=== PATIENT | female | born 1945 | race Caucasian/White ===

== ENCOUNTER 2022-03-18 11:41 | Inpatient (IN) | payer OTHER ==
[~2022-03-18] VITALS: Ht 154.9 cm; Wt 91.2 kg
--- NOTE | 2022-03-18 11:50 | NUR ---
ER at bedside examining patient.
--- NOTE | 2022-03-18 11:55 | NUR ---
pt biba via bls with c/o mech fall s/p slipping on scale. pt presnts awake, a/o x4 and verbally responsive. no acute distress noted. breathing even and unlabored. pt reports before getting in shower she wanted to weigh herself, got on scale and scale tipped causing her to slip on floor. pt presents with immobilzer to left leg. per emt reports swelling to left thigh. pt reports a 6/10 pain. pt placed on vs montior. per emt reports pt's vss on scene. pt in gurney and in comfortable position. awaiting mse
[2022-03-18 11:59] VITALS: BP_SYST 148
[2022-03-18] MEDS ORDERED: MORPHINE 4 MG INJ. 4 MG/ML VIAL IVP ONE (12:45)
[2022-03-18 13:27] LABS: BASOPHILS % (AUTO) 0.3 % (0.0-2.0); EOSINOPHILS # (AUTO) 0.3 K/uL (0.0-0.4); EOSINOPHILS % (AUTO) 2.6 % (0.0-4.0); HEMOGLOBIN 13.1 g/dL (12.0-16.0); LYMPHOCYTES # (AUTO) 1.3 K/uL (1.0-5.5); MEAN CORPUSCULAR HEMOGLOBIN 32 pg (27-31); MEAN CORPUSCULAR HGB CONC 34 % (32-36); MEAN CORPUSCULAR VOLUME 94 fL (79.0-98.0); MONOCYTES # (AUTO) 0.9 K/uL (0.0-1.0); MONOCYTES % (AUTO) 7.1 % (1.7-9.3); NEUTROPHILS # (AUTO) 10.1 K/uL (1.8-7.7); PLATELET COUNT (AUTO) 215 K/uL (130-430); RED BLOOD CELL COUNT(AUTO) 4.16 MIL/uL (4.2-6.2); WHITE BLOOD COUNT (AUTO) 12.6 K/uL (4.8-10.8)
[2022-03-18 13:42] LABS: ANION GAP 11 (5-15); CALCIUM 8.5 mg/dL (8.4-11.0); CHLORIDE 102 mmol/L (98-107); CREATININE 0.82 mg/dL (0.55-1.30); GLUCOSE 123 mg/dL (70-99); UREA NITROGEN, BLOOD 25 mg/dL (8-21)
--- NOTE | 2022-03-18 13:42 | NUR ---
Admit bed requested Patient will be admitted to care of . Admitted to med surg unit. Diagnosis r hip femur fx Inpatient (Yes or No) y Observation (Yes or No) n Orientation concerns or request close to nursing station (Yes or No) n Covid Status neg On vent or bipap n Isolation requirements n Needs a sitter n From Home (Yes or if No enter name of facility) y Requires Dialysis (Yes or No) n Med Rec Completed (Yes of No) pending
[2022-03-18 13:46] LABS: PROTHROMBIN TIME 10.7 SECS (9.5-12.5)
[2022-03-18 13:49] LABS: ALANINE AMINOTRANSFERASE 20 U/L (12-78); ALBUMIN 3.7 g/dL (3.4-4.8); ASPARTATE AMINOTRANSFERASE 23 U/L (10-37); TOTAL BILIRUBIN 0.2 mg/dL (0.0-1.0)
[2022-03-18] MEDS ORDERED: FLUT1BLS5 INH (13:55)
[2022-03-18] MEDS ORDERED: PRAV10TA PO (13:55)
[2022-03-18] MEDS ORDERED: IBUP-1507 PO (13:55)
[2022-03-18] MEDS ORDERED: AMLO10TA88 PO (13:55)
--- NOTE | 2022-03-18 13:56 | NUR ---
Medication reconciliation completed with information provided by pt. Any prior medication reconciliation on file was reviewed and corrected.
[2022-03-18] MEDS: 0.45% NACL 1,000 ML IV SCH (14:44)
[2022-03-18 14:55] LABS: BILIRUBIN,URINE NEGATIVE (NEGATIVE); BLOOD, URINE NEGATIVE (NEGATIVE); CLARITY/URINE CLEAR (CLEAR); COLOR,URINE YELLOW (YELLOW); GLUCOSE,URINE NEGATIVE (NEGATIVE); KETONES,URINE NEGATIVE (NEGATIVE); LEUKOCYTE ESTERASE ,URINE NEGATIVE (NEGATIVE); NITRITE, URINE NEGATIVE (NEGATIVE); PROTEIN URINE NEGATIVE (NEGATIVE); UROBILINOGEN,URINE 0.2 (0.2-1.0)
--- NOTE | 2022-03-18 15:09 | NUR ---
pt resting in position of comfort in [facility]. no acute distress noted. breathing even and unlabored. safety measures in place. daughter zen and sister left at this time, stated to call for any updates at . no changes noted at this time
[2022-03-18] MEDS ORDERED: ASPIRIN 81 MG TAB.CHEW PO ONE (15:30)
--- NOTE | 2022-03-18 16:34 | NUR ---
pt is awake, a/o x4 and verbally resposive. no acute distress noted. breathing even and unlabored. safety measures in place, no changesat this time
--- NOTE | 2022-03-18 17:33 | NUR ---
pt placed on purewick / female extrernal catheter. tolerating well and no discomfort at this time
--- NOTE | 2022-03-18 18:24 | NUR ---
pt awake, a/o x4 and resting in gurney. no distress noted. breathing even and unlabored. safety measures in place, no changes at this time.
--- NOTE | 2022-03-18 18:54 | NUR ---
MEAL TRAY PROVIDED FOR PATIENT. DAUGHTER AT BEDSIDE
--- NOTE | 2022-03-18 19:17 | NUR ---
report given to Laurie NEWELL.
--- NOTE | 2022-03-18 19:30 | NUR ---
First contact with the patient. AAo x4, VSS, RR even and unlabored.
[2022-03-18] MEDS: MORPHINE 4 MG INJ. 4 MG/ML VIAL IVP PRN (19:58)
[2022-03-18 20:34] VITALS: BP_SYST 113
--- NOTE | 2022-03-18 20:35 | NUR ---
Patient will be admitted to care of Dr Roberts. Admitted to Tele unit. Will go to room 119. Belongings list completed. Complete and up to date summary report printed. SBAR report to be given at bedside with opportunity for questions.
[2022-03-18 21:00] VITALS: BP_SYST 133
--- NOTE | 2022-03-18 21:00 | NUR ---
Paged Dr. Sadie Maganafor orders, Spaulding catheter
--- NOTE | 2022-03-18 21:16 | NUR ---
Verified to the patient that she doesn't have allergy to penicillin
[2022-03-19] VITALS: BP_SYST 120
[2022-03-19] MEDS: MORPHINE 2 MG/ML INJ. SYRINGE IVP PRN ×2 (03:03→21:28)
--- NOTE | 2022-03-19 06:42 | NUR ---
RECEIVED PATIENT EARLY EVENING OF 03/18/22 FROM ER VIA GURNEY TO TELEMETRY UNIT, ROOM 119 A AT 2044, THE PATIENT IS ACCOMPANIED BY TWO DAUGHTERS. THE PATIENT IS COMFORTABLE HAVING RECEIVED IV MORPHINE JUST AFTER 200, EVALUATION OF PAIN IS REPORTED RELIEVED. NO NEW NERVE AND CIRCULATION CHANGES NOTED. THE PATIENT WAS MEDICATED LATER IN SHIFT FOR LEFT FEMUR PAIN, GOOD RESULTS, VITALS ARE STABLE. PATIENT STATES SHE IS SCHEDULED TO HAVE FEMUR SURGERY ON SUNDAY, SHE DID SPEAK WITH SURGEON. IV FLUID WITH 1/2NS AT 50/MLHR CONTINUES TO INFUSE, VITALS ARE STABLE.
[2022-03-19 08:00] VITALS: BP_SYST 137
--- NOTE | 2022-03-19 08:00 | NUR ---
Opening Notes Patient is AO x4. Nonambulatory at this time. No ss of distress noted. Breathing is even and nonlabored, on room air. Vital signs obtained, as documented. No facial grimace noted. patient is eating breakfast. IVF running, Iv patent. Bed is locked, alarm on, and at lowest position. Call light within reach.
[2022-03-19] MEDS: MORPHINE 4 MG INJ. 4 MG/ML VIAL IVP PRN ×2 (09:15→16:51)
--- NOTE | 2022-03-19 09:15 | NUR ---
Notes patient requested pain medication, stated 10/22. OSIRIS Lerner administered IVP pain medication. bed is locked, alarm on, and at lowest position. call light within reach.
--- NOTE | 2022-03-19 09:30 | NUR ---
[place] [employer] patient was informed that MD recommenced [place] traction, reason for traction was explained to patient and its benefits. Patient refused and stated "does not want it that she is fine, tomorrow she is having the surgery." MD Villaseñor indicated in notes that if patient does not tolerate traction, okay to dc.
[2022-03-19] MEDS: 0.45% NACL 1,000 ML IV SCH (11:28)
[2022-03-19 11:29] VITALS: BP_SYST 112
--- NOTE | 2022-03-19 11:42 | NUR ---
consultation called and spoke to Dr. Lilli Roth. MD is aware of consultation for cardiac clearance. MD aware that echo is being done at this time. MD state he will come and see patient in the afternoon.
[2022-03-19] MEDS ORDERED: COMMUNICATION ORDER XX SCH (12:00)
[2022-03-19] MEDS ORDERED: CARVEDILOL 3.125 MG TABLET (COREG) PO ONE (12:00)
--- NOTE | 2022-03-19 12:34 | NUR ---
Notes Patient is eating lunch and talking to family at bedside. No ss of distress. Patient denies pain. SCDs in place. Safety precautions in place and call light within reach.
--- NOTE | 2022-03-19 15:00 | NUR ---
Notes Dr. Lilli Roth saw patient at bedside and spoke to patient and family.
[2022-03-19] MEDS ORDERED: TRELEGY ELLIPTA INH ONE (15:30)
--- NOTE | 2022-03-19 16:30 | NUR ---
Notes Patient is resting, no ss of distress noted. Breathing is even and nonlabored, on room air. Patient requested pain medication. Rn Eduarda administered IVP pain med. IVF running. Iv patent. Safety precautions in place and call light within reach.
[2022-03-19 17:06] VITALS: BP_SYST 110
--- NOTE | 2022-03-19 18:59 | NUR ---
Closing Note Patient is refused tray, has food at bedside that daughter brought for her. No ss of distress noted. Breathing is even and nonlabored, on room air. Patient denies pain. No facial grimace noted. IVF running. IV patent. All needs met. Patient is stable at this time. Patient aware that she is to be NPO after midnight. Consents signed. Bed is locked, alarm on, and at lowest position. Call light within reach.
[2022-03-19 20:00] VITALS: BP_SYST 138
[2022-03-19] MEDS: CARVEDILOL 3.125 MG TABLET (COREG) PO SCH (21:29)
[2022-03-20 01:32] VITALS: BP_SYST 134
[2022-03-20 04:00] VITALS: BP_SYST 133
[2022-03-20] MEDS: MORPHINE 4 MG INJ. 4 MG/ML VIAL IVP PRN ×4 (05:22→20:44)
[2022-03-20] MEDS: 0.45% NACL 1,000 ML IV SCH (07:02)
[2022-03-20 08:00] VITALS: BP_SYST 121
--- NOTE | 2022-03-20 08:00 | NUR ---
Opening Notes Patient is Aox4. No ss of distress noted. Breathing is even and nonlabored, on room air. Patient denies pain.Patient is NPO.Iv patent. IVF running. Vital signs obtained, as documented.CHG bath was given. Patient is resting. SCDs are in place. Bed is locked, alarm on, and at lowest position.
[2022-03-20 08:14] LABS: BASOPHILS % (AUTO) 0.4 % (0.0-2.0); EOSINOPHILS # (AUTO) 0.6 K/uL (0.0-0.4); EOSINOPHILS % (AUTO) 8.1 % (0.0-4.0); HEMATOCRIT 32.1 % (36-48); HEMOGLOBIN 11.3 g/dL (12.0-16.0); LYMPHOCYTES # (AUTO) 1.4 K/uL (1.0-5.5); LYMPHOCYTES % (AUTO) 17.8 % (20.5-51.5); MEAN CORPUSCULAR HEMOGLOBIN 32 pg (27-31); MEAN CORPUSCULAR HGB CONC 35 % (32-36); MEAN CORPUSCULAR VOLUME 91 fL (79.0-98.0); MONOCYTES # (AUTO) 0.9 K/uL (0.0-1.0); MONOCYTES % (AUTO) 11.6 % (1.7-9.3); NEUTROPHILS # (AUTO) 4.9 K/uL (1.8-7.7); NEUTROPHILS % (AUTO) 62.1 % (40.0-70.0); PLATELET COUNT (AUTO) 190 K/uL (130-430); RED BLOOD CELL COUNT(AUTO) 3.52 MIL/uL (4.2-6.2); RED CELL DISTRIBUTION WIDTH 14.3 % (9.0-15.0); WHITE BLOOD COUNT (AUTO) 7.9 K/uL (4.8-10.8)
[2022-03-20 08:33] LABS: ANION GAP 8 (5-15); CALCIUM 8.3 mg/dL (8.4-11.0); CHLORIDE 104 mmol/L (98-107); CREATININE 0.72 mg/dL (0.55-1.30); GLUCOSE 123 mg/dL (70-99); UREA NITROGEN, BLOOD 13 mg/dL (8-21)
[2022-03-20] MEDS: CARVEDILOL 3.125 MG TABLET (COREG) PO SCH ×2 (08:51→20:45)
[2022-03-20] MEDS: TRELEGY ELLIPTA INH SCH (08:52)
--- NOTE | 2022-03-20 09:18 | NUR ---
Notes Patient is NPO. No ss of distress noted. Patient stable. daughter at bedside. Safety precautions in place and call light within reach.
--- NOTE | 2022-03-20 10:45 | NUR ---
MD Dr. Brandt anesthesiologist came to speak to patient at bedside. Family at bedside. Consents signed. Patient request Morphine. Dr. Brandt aware and stated"okay to give, have patient be comfortable."
[2022-03-20 10:54] VITALS: BP_SYST 143
[2022-03-20] MEDS ORDERED: TRANEXAMIC ACID 1,000 MG/10 ML VIAL ONE (11:17)
[2022-03-20] MEDS ORDERED: SUGAMMADEX SODIUM 200 MG/2 ML VIAL IV ONE (11:17)
[2022-03-20] MEDS ORDERED: NS 1000 ML IV.SOLN IV ONE (11:17)
[2022-03-20] MEDS ORDERED: DEXAMETHASONE SOD PHOSPHATE 4 MG/ML VIAL ONE (11:17)
[2022-03-20] MEDS ORDERED: DESFLURANE 15 MIN GAS INH ONE (11:17)
[2022-03-20] MEDS ORDERED: ONDANSETRON HCL 4 MG/2 ML VIAL ONE (11:17)
[2022-03-20] MEDS ORDERED: LR 1,000 ML IV.SOLN IV ONE (11:17)
[2022-03-20] MEDS ORDERED: ceFAZolin SODIUM 2 GM VIAL ONE (11:17)
[2022-03-20] MEDS ORDERED: VANCOMYCIN HCL 1000 MG/VIAL IV ONE ×2 (11:17)
[2022-03-20] MEDS ORDERED: NS IRRIG SOLN 1000 ML IR ONE (11:17)
[2022-03-20] MEDS ORDERED: ROCURONIUM BROMIDE 10 MG/ML (ZEMURON) ONE (11:17)
[2022-03-20] MEDS ORDERED: BUPIVACAINE /EPINEPHRINE/PF 0.25% 30 ML VIAL ONE (11:17)
[2022-03-20] MEDS ORDERED: PROPOFOL 200MG/ 20ML VIAL (DIPRIVAN) IV ONE (11:17)
[2022-03-20] MEDS ORDERED: KETOROLAC TROMETHAMINE 30 MG VIAL ONE (11:17)
[2022-03-20] MEDS ORDERED: LIDOCAINE 1% 10 MG/ML, 20 ML MDV ONE (11:17)
[2022-03-20] MEDS ORDERED: fentaNYL CITRATE/PF 100 MCG/2 ML AMP ONE (11:17)
[2022-03-20] MEDS ORDERED: MIDAZOLAM HCL 2 MG/2 ML VIAL (VERSED) ONE (11:17)
--- NOTE | 2022-03-20 11:28 | NUR ---
Notes Patient left unit to OR.
[2022-03-20] MEDS ORDERED: ACETAMINOPHEN I.V. 1000 MG 100 ML IV ONE (12:25)
[2022-03-20] MEDS ORDERED: LR 1,000 ML IV SCH (12:30)
[2022-03-20] MEDS ORDERED: MEPERIDINE HCL/PF 25 MG/ML DISP.SYRIN IVP PRN (12:30)
[2022-03-20] MEDS ORDERED: HYDROmorphone 1 MG/ML INJ. CARTRIDGE IVP PRN (12:30)
[2022-03-20] MEDS ORDERED: hydrALAZINE HCL 20 MG/ML VIAL IVP PRN (12:30)
[2022-03-20] MEDS ORDERED: METOCLOPRAMIDE HCL 10 MG/2 ML VIAL IVP PRN (12:30)
[2022-03-20] MEDS ORDERED: LABETALOL 100 MG/ 20ML VIAL IVP PRN (12:30)
[2022-03-20] MEDS ORDERED: HYDROmorphone 1 MG/ML INJ. CARTRIDGE ONE (14:14)
[2022-03-20] MEDS: HYDROmorphone 1 MG/ML INJ. CARTRIDGE IVP PRN ×2 (14:17→14:41)
[2022-03-20 16:00] VITALS: BP_SYST 117
--- NOTE | 2022-03-20 16:00 | NUR ---
NOTES PATIENT RETURNED TO UNIT FROM OR. NO SS OF DISTRESS NOTED. BREATHING IS EVEN AND NONLABORED,ON 2 L O2 VIA NC. PATIENT DENIES PAIN. XRAY DONE. VITAL SIGNS OBTAINED, DOCUMENTED. LEFT LOWER EXTREMITY INCISION COVERED WITH DRESSING. DRESSING IS CLEAN, DRY, AND INTACT. NO ACTIVE BLEEDING NOTED. IVF RUNNING. IV PATENT. PERIWICK IN PLACE. FAMILY AT BEDSIDE. BED IS LOCKED, ALARM ON, AND AT LOWEST POSITION. CALL LIGHT WITHIN REACH.
--- NOTE | 2022-03-20 18:20 | NUR ---
PAIN PATIENT COMPLAINING OF PAIN TO LEFT LEG. WENT TO ADMINISTER MORPHINE IV IS INFILTRATED. WASTED MORPHINE WITH SECOND INSTALLATION TECH WITNESS
--- NOTE | 2022-03-20 19:14 | NUR ---
CLOSING NOTES PATIENT IS EATING DINNER, FULL LIQUID, TOLERATING WELL. NO SS OF DISTRESS NOTED. BREATHING IS EVEN AND NONLABORED, ON 2 L O2 VIA NC. IV INFILTRATED. ATTEMPTED TO INSERT IV TWICE, UNSUCCESSFUL. NO FACIAL GRIMACE NOTED. PATIENT IS STABLE. ALL NEEDS MET. ALL SAFETY PRECAUTIONS IN PLACE. BED LOCKED, ALARM ON, AND AT LOWEST POSITION. CALL LIGHT WITHIN REACH. DAUGHTER AT BEDSIDE.
[2022-03-20 21:30] VITALS: BP_SYST 135
[2022-03-20] MEDS: ceFAZolin SODIUM 2 GM in D5W 100 ML IV SCH (22:20)
[2022-03-21] MEDS: MORPHINE 4 MG INJ. 4 MG/ML VIAL IVP PRN ×2 (02:56→09:09)
[2022-03-21 04:00] VITALS: BP_SYST 134
[2022-03-21] MEDS: ceFAZolin SODIUM 2 GM in D5W 100 ML IV SCH ×3 (06:03→21:53)
[2022-03-21 08:00] VITALS: BP_SYST 115
--- NOTE | 2022-03-21 08:00 | NUR ---
Notes Patient is Aox4.No ss of distress noted. Breathing is even and nonlabored, on room air. Denies SOB. Iv patent. Patient states has pain but manageable to this time, does not request pain meds at this time.Vital signs obtained, as documented. Patient is eating breakfast. bed is locked,alarm on, and at lowest position. Call light within reach.
[2022-03-21] MEDS: TRELEGY ELLIPTA INH SCH (08:45)
[2022-03-21] MEDS: CARVEDILOL 3.125 MG TABLET (COREG) PO SCH ×2 (08:45→21:52)
--- NOTE | 2022-03-21 09:09 | NUR ---
Notes Patient requested pain medication. RN at bedside to administer IVP Morphine.
[2022-03-21 11:12] LABS: BASOPHILS % (AUTO) 0.2 % (0.0-2.0); EOSINOPHILS % (AUTO) 0.4 % (0.0-4.0); HEMATOCRIT 28.4 % (36-48); HEMOGLOBIN 9.8 g/dL (12.0-16.0); LYMPHOCYTES # (AUTO) 1.1 K/uL (1.0-5.5); LYMPHOCYTES % (AUTO) 11.2 % (20.5-51.5); MEAN CORPUSCULAR HEMOGLOBIN 32 pg (27-31); MEAN CORPUSCULAR HGB CONC 34 % (32-36); MEAN CORPUSCULAR VOLUME 93 fL (79.0-98.0); MONOCYTES # (AUTO) 1.2 K/uL (0.0-1.0); MONOCYTES % (AUTO) 12.1 % (1.7-9.3); NEUTROPHILS # (AUTO) 7.3 K/uL (1.8-7.7); NEUTROPHILS % (AUTO) 76.1 % (40.0-70.0); PLATELET COUNT (AUTO) 192 K/uL (130-430); RED BLOOD CELL COUNT(AUTO) 3.06 MIL/uL (4.2-6.2); WHITE BLOOD COUNT (AUTO) 9.6 K/uL (4.8-10.8)
[2022-03-21 12:00] VITALS: BP_SYST 143
[2022-03-21] MEDS ORDERED: IBUPROFEN 800 MG TABLET PO PRN (12:00)
[2022-03-21] MEDS ORDERED: NALOXONE HCL 0.4 MG/ML AMP (NARCAN) IVP PRN ×2 (12:00→15:30)
[2022-03-21] MEDS ORDERED: ACETAMINOPHEN 325 MG TABLET PO PRN (12:00)
--- NOTE | 2022-03-21 12:00 | NUR ---
notes Spoke with Dr. Villaseñor. new orders received. Patient is in no distress. Breathing is even and nonlabored, on room air. Vital signs obtained. Patient denies severe pain. All safety precautions in place and call light within reach. Call light within reach.
[2022-03-21] MEDS ORDERED: ASPIRIN 81 MG TAB.CHEW PO ONE (12:45)
[2022-03-21] MEDS ORDERED: DOCUSATE SODIUM 100 MG CAPSULE PO ONE (13:00)
[2022-03-21 16:00] VITALS: BP_SYST 126
--- NOTE | 2022-03-21 16:37 | NUR ---
notes patient is resting, in bed. Patient cleaned herself up. Denies severe pain. no SOB noted. Patient is stable. Bed is locked, alarm on, and at lowest position. Call light within reach.
[2022-03-21] MEDS: HYDROcodone/ACETAMIN 5-325 MG TAB (NORCO/ VICODIN) PO PRN (17:30)
--- NOTE | 2022-03-21 18:52 | NUR ---
Closing notes Patient is resting, eating dinner. No ss of distress noted. Breathing is even and nonlabored, on room air. Denies SOB. Denies pain. Iv patent. Patient is stable. All needs met. Bed is locked, alarm on, and at lowest position. Call light within reach.
[2022-03-21 19:50] VITALS: BP_SYST 112
--- NOTE | 2022-03-21 19:50 | NUR ---
RECEIVED PT AOX4, SITTING UP IN BED, EVEN AND UNLABORED BREATHING, DENIED ANY ISSUE AT THIS TIME, LOW BED, CALL LIGHT W/N REACH, L LATERAL THIGH INCISION SITE COVERED WITH DSG, CLEAN, DRY AND INTACT. WILL CONTINUE WITH CARE PLAN
[2022-03-21] MEDS: ASPIRIN 81 MG TAB.CHEW PO SCH (21:54)
[2022-03-21] MEDS: MORPHINE 2 MG/ML INJ. SYRINGE IVP PRN (22:15)
[2022-03-22] VITALS: BP_SYST 119
[2022-03-22] MEDS: ceFAZolin SODIUM 2 GM in D5W 100 ML IV SCH ×3 (05:36→21:09)
[2022-03-22] MEDS: HYDROcodone/ACETAMIN 5-325 MG TAB (NORCO/ VICODIN) PO PRN ×2 (06:08→14:54)
--- NOTE | 2022-03-22 06:56 | NUR ---
PT AOX4, SITTING UP IN BED, EVEN AND UNLABORED BREATHING, DENIED SOB, CP, OR PAIN, LEG PAIN CONTROLLED WITH NORCO, MORTIN AND MORPHINE, WELL TOLERATED BY PT AND EFFECTIVE, LOW BED, CALL LIGHT W/N REACH, L LATERAL THIGH INCISION SITE, CLEAN, DRY AND INTACT. WILL ENDORSE TO INCOMING RN
[2022-03-22] MEDS ORDERED: OMEPRAZOLE Non-Formulary 20 MG CAPSULE.DR PO SCH (08:00)
[2022-03-22] MEDS ORDERED: HYDR-3917 PO (08:26)
[2022-03-22] MEDS: DOCUSATE SODIUM 100 MG CAPSULE PO SCH (08:48)
[2022-03-22] MEDS: CARVEDILOL 3.125 MG TABLET (COREG) PO SCH ×2 (08:48→21:08)
[2022-03-22] MEDS: ASPIRIN 81 MG TAB.CHEW PO SCH ×2 (08:48→21:07)
--- NOTE | 2022-03-22 08:48 | NUR ---
Scheduled medications given per order. Patient stable at this time with no distress noted.
[2022-03-22] MEDS: TRELEGY ELLIPTA INH SCH (08:49)
[2022-03-22 08:50] VITALS: BP_SYST 123
[2022-03-22] MEDS: PANTOPRAZOLE SODIUM 40 MG TAB PO SCH (08:51)
--- NOTE | 2022-03-22 10:30 | NUR ---
Patient stable; resting comfortably in bed with no distress noted.
[2022-03-22 11:31] VITALS: BP_SYST 121
--- NOTE | 2022-03-22 14:29 | NUR ---
Scheduled IV abx given per order. Patient stable at this time. Request medication for left leg pain. Will medicate.
--- NOTE | 2022-03-22 14:54 | NUR ---
Patient medicated for 8/10 left hip pain. Patient stable at this time.
--- NOTE | 2022-03-22 15:40 | NUR ---
Patient stable; resting comfortably in bed with no distress noted. Pain is subsiding.
--- NOTE | 2022-03-22 16:05 | NUR ---
Spoke to SHAY Franks at [facility] / . Per Tiny, inquiries were sent to 4 different SNFs. She's awaiting call back. One SNF location is in [place].
[2022-03-22 16:17] VITALS: BP_SYST 122
--- NOTE | 2022-03-22 18:45 | NUR ---
Patient resting comfortably in bed with daughter at bedside. Patient stable throughout shift.
--- NOTE | 2022-03-22 19:37 | NUR ---
RECEIVED PT IN BED, AOX4, EVEN AND UNLABORED BREATHING, DENIED SOB, CP OR PAIN AT THIS TIME, LOW BED, CALL LIGHT W/N REACH, L LATERAL THIGH INCISION SITE COVERED WITH DSG, CLEAN, DRY AND INTACT. SALINE LOCK TO LW, PATENT AND FLUSHING, WILL CONTINUE WITH CARE PLAN
[2022-03-22 20:00] VITALS: BP_SYST 131
[2022-03-22] MEDS: MORPHINE 2 MG/ML INJ. SYRINGE IVP PRN (21:10)
[2022-03-23 00:31] VITALS: BP_SYST 111
[2022-03-23] MEDS: HYDROcodone/ACETAMIN 5-325 MG TAB (NORCO/ VICODIN) PO PRN ×2 (04:19→14:56)
[2022-03-23] MEDS: ceFAZolin SODIUM 2 GM in D5W 100 ML IV SCH ×2 (05:31→14:55)
--- NOTE | 2022-03-23 06:50 | NUR ---
PT AOX4, EVEN AND UNLABORED BREATHING, DENIED SOB, CP OR PAIN AT THIS TIME, LOW BED, CALL LIGHT W/N REACH, L LATERAL THIGH INCISION SITE COVERED WITH DSG, CLEAN, DRY AND INTACT. SALINE LOCK TO LW, PATENT AND FLUSHING, ON BEDREST, VOIDING VIA PUREWICK, CLEAR AND YELLOW URINE, SAFETY PREC MAINTAINED, WILL BE ENDORSED TO INCOMING RN
[2022-03-23] MEDS: DOCUSATE SODIUM 100 MG CAPSULE PO SCH (09:12)
[2022-03-23] MEDS: PANTOPRAZOLE SODIUM 40 MG TAB PO SCH (09:12)
[2022-03-23] MEDS: ASPIRIN 81 MG TAB.CHEW PO SCH (09:12)
[2022-03-23] MEDS: CARVEDILOL 3.125 MG TABLET (COREG) PO SCH (09:13)
[2022-03-23] MEDS: TRELEGY ELLIPTA INH SCH (09:16)
[2022-03-23 12:01] VITALS: BP_SYST 110
--- NOTE | 2022-03-23 13:08 | NUR ---
PHYSICAL THERAPY CO-SIGN The Physical Therapy Progress Notes documented by Strip Mill Operator have been reviewed. Reviewed/Co-Signed by: Antonio Lujan Documentation Done by:TOM BAJWA Addendum: 03/23/22 at 1309 by Antonio Lujan PT Amended: Links added.
[2022-03-23 13:33] VITALS: BP_SYST 118
[2022-03-23 16:17] VITALS: BP_SYST 114
--- NOTE | 2022-03-23 17:33 | NUR ---
D/C Patient to SNF for rehab Patient given medication reconciliation form and D/C instructions. Exit Care provided. Patient verbalized understanding. MD discussed with patient the results and treatment provided. Ambulatory with steady gait for discharge to SNF. Patient in stable condition, ID band removed. IV catheter removed, intact and dressing applied, no active bleeding. Rx of given. Patient educated on pain management and monitor for s/s of infection . All belongings sent with patient. Report given to CC/RN at the SNF
== END 2022-03-23 17:35 | DRG 481 ==
LOC: SED 11:41 → SMU 14:00 → STU 19:55 → SMU 03-21 23:27
PROVIDERS: ADMIT Specialist; ATTEND Specialist
PROC: 0QS704Z Reposition Left Upper Femur with Internal Fixation Device, Open Approach (ICD-10-PCS; principal; 2022-03-20 11:27)
DX: M97.02XA Periprosthetic fracture around internal prosthetic left hip joint, initial encounter (principal); I43 Cardiomyopathy in diseases classified elsewhere; I10 Essential (primary) hypertension; E78.5 Hyperlipidemia, unspecified; W18.39XA Other fall on same level, initial encounter; Z20.822 Contact with and (suspected) exposure to COVID-19; Z79.1 Long term (current) use of non-steroidal anti-inflammatories (NSAID); Z79.899 Other long term (current) drug therapy; Y93.89 Activity, other specified; Y92.89 Other specified places as the place of occurrence of the external cause; Y99.8 Other external cause status
CPT/HCPCS: 36415; 71045; 73502; 73552; 73560-TC; 76001; 80048; 80053; 81003; 84484; 85025; 85610-TC; 86886; 86900; 86901; 86920; 87081; 93005; 93306; 96374; 97110-GP; 97112-GP; 97530-GP; 99285; C1713; G0378; J0131; J1100; J1170; J1885; J2001; J2270; J2405; J2704; J3010; J3370; J3465; J3490; J7030; J7060; J7120

== ENCOUNTER 2022-09-29 19:50 | Emergency (ER) | payer OTHER ==
[~2022-09-29] VITALS: Ht 152.4 cm; Wt 81.6 kg
[~2022-09-29 19:50] MED LIST: AMLO10TA88 PO; FLUT1BLS5 INH; HYDR-3917 PO; IBUP-1507 PO; PRAV10TA PO
[2022-09-29 19:56] VITALS: BP_SYST 137; PULSE 66; RESP 16; TEMP 97.9; O2SAT 96
[2022-09-29 21:59] LABS: BILIRUBIN,URINE NEGATIVE (NEGATIVE); BLOOD, URINE NEGATIVE (NEGATIVE); CLARITY/URINE HAZY (CLEAR); COLOR,URINE YELLOW (YELLOW); GLUCOSE,URINE NEGATIVE (NEGATIVE); KETONES,URINE TRACE (NEGATIVE); LEUKOCYTE ESTERASE ,URINE TRACE (NEGATIVE); NITRITE, URINE NEGATIVE (NEGATIVE); PROTEIN URINE 1+ (NEGATIVE); UROBILINOGEN,URINE 0.2 (0.2-1.0)
[2022-09-29 22:01] LABS: BACTERIA,URINE FEW /HPF (None Seen); RBC,URINE 0-3 /HPF (0-3)
[2022-09-29 22:15] VITALS: BP_SYST 137; PULSE 60; RESP 16; TEMP 97.9; O2SAT 96
== END 2022-09-29 22:15 | disposition home or self-care (01) ==
LOC: SED 19:50
DX: R55 Syncope and collapse (principal); R42 Dizziness and giddiness; I10 Essential (primary) hypertension; Z79.899 Other long term (current) drug therapy
CPT/HCPCS: 81000; 82962; 87086; 93005; 99284

== ENCOUNTER 2022-11-20 11:06 | Inpatient (IN) | payer OTHER ==
[~2022-11-20] VITALS: Ht 152.4 cm; Wt 81.6 kg
[2022-11-20 12:27] VITALS: BP_SYST 138; PULSE 88; RESP 18; TEMP 97.8; O2SAT 95
[2022-11-20] MEDS ORDERED: ONDANSETRON HCL 4 MG/2 ML VIAL IVP ONE (14:15)
[2022-11-20] MEDS ORDERED: MORPHINE 4 MG INJ. 4 MG/ML VIAL IVP ONE (14:15)
[2022-11-20 16:00] LABS: BASOPHILS % (AUTO) 0.1 % (0.0-2.0); HEMATOCRIT 38.2 % (36-48); HEMOGLOBIN 12.6 g/dL (12.0-16.0); LYMPHOCYTES % (AUTO) 12.9 % (20.5-51.5); MEAN CORPUSCULAR HEMOGLOBIN 30 pg (27-31); MEAN CORPUSCULAR HGB CONC 33 % (32-36); MEAN CORPUSCULAR VOLUME 91 fL (79.0-98.0); MONOCYTES # (AUTO) 0.4 K/uL (0.0-1.0); MONOCYTES % (AUTO) 5.2 % (1.7-9.3); NEUTROPHILS # (AUTO) 6.2 K/uL (1.8-7.7); NEUTROPHILS % (AUTO) 81.8 % (40.0-70.0); PLATELET COUNT (AUTO) 271 K/uL (130-430); RED CELL DISTRIBUTION WIDTH 14.5 % (9.0-15.0); WHITE BLOOD COUNT (AUTO) 7.6 K/uL (4.8-10.8)
[2022-11-20 16:10] LABS: ANION GAP 8 (5-15); CALCIUM 8.1 mg/dL (8.4-11.0); CARBON DIOXIDE 28 mmol/L (23-29); CHLORIDE 103 mmol/L (98-107); CREATININE 0.91 mg/dL (0.55-1.30); GLUCOSE 130 mg/dL (74-106); SODIUM SERUM 139 mmol/L (136-145); UREA NITROGEN, BLOOD 25 mg/dL (8-21)
[2022-11-20 16:17] LABS: ALANINE AMINOTRANSFERASE 26 U/L (12-78); ALBUMIN 3.6 g/dL (3.4-4.8); ASPARTATE AMINOTRANSFERASE 20 U/L (10-37); TOTAL BILIRUBIN 0.3 mg/dL (0.0-1.0); TOTAL PROTEIN, SERUM 7.5 g/dL (6.4-8.3)
[2022-11-20] MEDS ORDERED: MONT-40 PO (18:07)
[2022-11-20] MEDS ORDERED: PRED20TA PO (18:07)
[2022-11-20] MEDS ORDERED: TRELOGY (18:07)
[2022-11-20] MEDS ORDERED: PRAV10TA PO (18:07)
[2022-11-20] MEDS ORDERED: OMEP10SU2 PO (18:07)
[2022-11-20] MEDS ORDERED: CYCL10TA24 PO (18:07)
[2022-11-20] MEDS ORDERED: GABA-529 PO (18:07)
[2022-11-20] MEDS ORDERED: AMLO5TAB4 PO (18:07)
[2022-11-20 20:14] LABS: PROTHROMBIN TIME 10.1 SECS (9.5-12.5)
[2022-11-20] MEDS ORDERED: MORPHINE 4 MG INJ. 4 MG/ML VIAL IVP PRN (20:15)
[2022-11-20] MEDS ORDERED: HYDROcodone/ACETAMIN 5-325 MG TAB (NORCO/ VICODIN) PO PRN (20:15)
[2022-11-20] MEDS ORDERED: NALOXONE HCL 0.4 MG/ML AMP (NARCAN) IVP PRN ×2 (20:15)
[2022-11-20 21:00] VITALS: BP_SYST 128; PULSE 76; RESP 18; TEMP 97.6; O2SAT 93
[2022-11-20 21:34] VITALS: BP_SYST 128; PULSE 76; RESP 18; TEMP 97.6
[2022-11-20] MEDS: HYDROcodone/ACETAMIN 10-325 MG TAB PO PRN (22:25)
[2022-11-20] MEDS: D5/0.45 NS 1,000 ML IV SCH (22:26)
[2022-11-20 23:38] VITALS: O2SAT 93
[2022-11-21] VITALS (7 sets, daily range): BP systolic 100–122; PULSE 62–77; RESP 16–18; TEMP 97.1–98.4; O2SAT 91–97
[2022-11-21] MEDS: HYDROcodone/ACETAMIN 10-325 MG TAB PO PRN (03:32)
[2022-11-21] MEDS: D5/0.45 NS 1,000 ML IV SCH ×2 (06:30→11:45)
[2022-11-21 09:21] LABS: PROTHROMBIN TIME 10.7 SECS (9.5-12.5)
[2022-11-21] MEDS: HYDROcodone/ACETAMIN 5-325 MG TAB (NORCO/ VICODIN) PO PRN ×3 (11:48→21:11)
[2022-11-21] MEDS ORDERED: amLODIPine BESYLATE 5 MG TABLET PO ONE (17:30)
[2022-11-22 05:15] LABS: BILIRUBIN,URINE NEGATIVE (NEGATIVE); BLOOD, URINE NEGATIVE (NEGATIVE); CLARITY/URINE CLEAR (CLEAR); COLOR,URINE YELLOW (YELLOW); GLUCOSE,URINE NEGATIVE (NEGATIVE); KETONES,URINE NEGATIVE (NEGATIVE); NITRITE, URINE NEGATIVE (NEGATIVE); PH,URINE 7.5 (5.0-8.0); PROTEIN URINE NEGATIVE (NEGATIVE); UROBILINOGEN,URINE 0.2 (0.2-1.0)
[2022-11-22 05:32] LABS: LEUKOCYTE ESTERASE ,URINE TRACE (NEGATIVE)
[2022-11-22 05:33] LABS: BACTERIA,URINE None Seen /HPF (None Seen); RBC,URINE 0-3 /HPF (0-3)
[2022-11-22 05:34] LABS: TRIPLE PHOSPHATE CRYSTAL,UR 0-10 /HPF (None Seen)
[2022-11-22 06:17] LABS: BASOPHILS % (AUTO) 0.5 % (0.0-2.0); EOSINOPHILS # (AUTO) 0.3 K/uL (0.0-0.4); EOSINOPHILS % (AUTO) 4.9 % (0.0-4.0); HEMATOCRIT 33.3 % (36-48); HEMOGLOBIN 11.2 g/dL (12.0-16.0); LYMPHOCYTES # (AUTO) 2.3 K/uL (1.0-5.5); LYMPHOCYTES % (AUTO) 38.5 % (20.5-51.5); MEAN CORPUSCULAR HEMOGLOBIN 31 pg (27-31); MEAN CORPUSCULAR HGB CONC 34 % (32-36); MEAN CORPUSCULAR VOLUME 91 fL (79.0-98.0); MONOCYTES # (AUTO) 0.7 K/uL (0.0-1.0); MONOCYTES % (AUTO) 11.5 % (1.7-9.3); NEUTROPHILS # (AUTO) 2.7 K/uL (1.8-7.7); NEUTROPHILS % (AUTO) 44.6 % (40.0-70.0); PLATELET COUNT (AUTO) 231 K/uL (130-430); RED BLOOD CELL COUNT(AUTO) 3.66 MIL/uL (4.2-6.2); RED CELL DISTRIBUTION WIDTH 14.7 % (9.0-15.0); WHITE BLOOD COUNT (AUTO) 6.1 K/uL (4.8-10.8)
[2022-11-22 06:43] LABS: ANION GAP 10 (5-15); CALCIUM 8.3 mg/dL (8.4-11.0); CARBON DIOXIDE 24 mmol/L (23-29); CHLORIDE 106 mmol/L (98-107); CREATININE 0.78 mg/dL (0.55-1.30); GLUCOSE 101 mg/dL (74-106); POTASSIUM 4.1 mmol/L (3.5-5.1); SODIUM SERUM 140 mmol/L (136-145); UREA NITROGEN, BLOOD 24 mg/dL (8-21)
[2022-11-22] MEDS ORDERED: WATER FOR IRRIGATION,STERILE 1,000 ML IRRIG.SOLN IR ONE (07:52)
[2022-11-22] MEDS ORDERED: NS IRRIG SOLN 1000 ML IR ONE (07:52)
[2022-11-22] MEDS ORDERED: ROCURONIUM BROMIDE 10 MG/ML (ZEMURON) ONE (07:52)
[2022-11-22] MEDS ORDERED: ONDANSETRON HCL 4 MG/2 ML VIAL ONE (07:52)
[2022-11-22] MEDS ORDERED: KETOROLAC TROMETHAMINE 30 MG VIAL ONE (07:52)
[2022-11-22] MEDS ORDERED: TRANEXAMIC ACID 1,000 MG/10 ML VIAL ONE (07:52)
[2022-11-22] MEDS ORDERED: BUPIVACAINE /PF 0.25% 30 ML VIAL INJ ONE (07:52)
[2022-11-22] MEDS ORDERED: PROPOFOL 200MG/ 20ML VIAL (DIPRIVAN) IV ONE (07:52)
[2022-11-22] MEDS ORDERED: LR 1,000 ML IV.SOLN IV ONE (07:52)
[2022-11-22] MEDS ORDERED: ceFAZolin SODIUM 2 GM VIAL ONE (07:52)
[2022-11-22] MEDS ORDERED: fentaNYL CITRATE/PF 100 MCG/2 ML AMP ONE (07:52)
[2022-11-22] MEDS ORDERED: VANCOMYCIN HCL 1000 MG/VIAL IV ONE (07:52)
[2022-11-22] MEDS ORDERED: MIDAZOLAM HCL 2 MG/2 ML VIAL (VERSED) ONE (07:52)
[2022-11-22] MEDS ORDERED: DESFLURANE 15 MIN GAS INH ONE (07:52)
[2022-11-22] MEDS ORDERED: SUGAMMADEX SODIUM 200 MG/2 ML VIAL IV ONE (07:52)
[2022-11-22] MEDS ORDERED: DEXAMETHASONE SOD PHOSPHATE 4 MG/ML VIAL ONE (07:52)
[2022-11-22] MEDS ORDERED: NS IRRIG SOLN 5000 ML IR ONE (07:52)
[2022-11-22 08:00] VITALS: BP_SYST 125; PULSE 92; RESP 18; TEMP 96.9; O2SAT 96
[2022-11-22] MEDS ORDERED: ACETAMINOPHEN I.V. 1000 MG 100 ML IV ONE (08:33)
[2022-11-22] MEDS ORDERED: LABETALOL 100 MG/ 20ML VIAL IVP PRN (09:00)
[2022-11-22] MEDS ORDERED: METOCLOPRAMIDE HCL 10 MG/2 ML VIAL IVP PRN (09:00)
[2022-11-22] MEDS ORDERED: hydrALAZINE HCL 20 MG/ML VIAL IVP PRN (09:00)
[2022-11-22] MEDS ORDERED: MEPERIDINE HCL/PF 25 MG/ML DISP.SYRIN IVP PRN (09:00)
[2022-11-22] MEDS: amLODIPine BESYLATE 5 MG TABLET PO SCH (09:00)
[2022-11-22] MEDS: LR 1,000 ML IV SCH ×2 (09:00→12:30)
[2022-11-22] MEDS ORDERED: HYDROmorphone 1 MG/ML INJ. CARTRIDGE IVP PRN (09:00)
[2022-11-22] MEDS: D5/0.45 NS 1,000 ML IV SCH ×2 (09:45→21:17)
[2022-11-22] MEDS: HYDROmorphone 1 MG/ML INJ. CARTRIDGE IVP PRN ×2 (11:43→11:48)
[2022-11-22] MEDS ORDERED: HYDROmorphone 1 MG/ML INJ. CARTRIDGE ONE (11:43)
[2022-11-22 12:30] VITALS: BP_SYST 120; PULSE 88; RESP 19; TEMP 97.8; O2SAT 97; O2SAT 99
[2022-11-22] MEDS: ALBUTEROL SULFATE 0.083% 2.5 MG/3 ML VIAL.NEB INH SCH ×2 (13:00→19:00)
[2022-11-22 16:00] VITALS: BP_SYST 126; PULSE 76; RESP 19; TEMP 97.6; O2SAT 98
[2022-11-22] MEDS: HYDROcodone/ACETAMIN 10-325 MG TAB PO PRN (17:26)
[2022-11-22] MEDS ORDERED: BUDESONIDE 0.5 MG/2 ML AMPUL.NEB INH SCH (19:00)
[2022-11-22 20:00] VITALS: BP_SYST 102; PULSE 83; RESP 18; TEMP 98.8; O2SAT 94
[2022-11-22] MEDS: HYDROcodone/ACETAMIN 5-325 MG TAB (NORCO/ VICODIN) PO PRN (21:14)
[2022-11-22] MEDS: CEFAZOLIN 2 GM IVPB PREMIX 50 ML IV SCH (22:02)
[2022-11-23 00:24] VITALS: BP_SYST 113; PULSE 76; RESP 18; TEMP 97.2; O2SAT 94
[2022-11-23] MEDS: HYDROcodone/ACETAMIN 5-325 MG TAB (NORCO/ VICODIN) PO PRN (01:55)
[2022-11-23] MEDS: CEFAZOLIN 2 GM IVPB PREMIX 50 ML IV SCH ×3 (05:47→21:41)
[2022-11-23] MEDS: HYDROcodone/ACETAMIN 10-325 MG TAB PO PRN ×4 (06:44→21:41)
[2022-11-23] MEDS ORDERED: CEFA1FRO IV (09:15)
[2022-11-23] MEDS: amLODIPine BESYLATE 5 MG TABLET PO SCH (09:55)
[2022-11-23 12:00] VITALS: BP_SYST 127; PULSE 87; RESP 16; TEMP 98.4; O2SAT 97
[2022-11-23] MEDS: D5/0.45 NS 1,000 ML IV SCH (12:25)
[2022-11-23 16:00] VITALS: BP_SYST 122; PULSE 88; RESP 16; TEMP 97.9; O2SAT 98
[2022-11-23 20:20] VITALS: BP_SYST 100; PULSE 88; RESP 16; TEMP 98.2; O2SAT 94
[2022-11-23] MEDS: ZOLPIDEM TARTRATE 5 MG TABLET PO SCH (21:00)
[2022-11-24 00:01] VITALS: BP_SYST 114; PULSE 89; RESP 17; TEMP 97.6
[2022-11-24] MEDS: D5/0.45 NS 1,000 ML IV SCH (01:45)
[2022-11-24] MEDS: HYDROcodone/ACETAMIN 10-325 MG TAB PO PRN (02:01)
[2022-11-24 05:20] LABS: BASOPHILS % (AUTO) 0.2 % (0.0-2.0); EOSINOPHILS # (AUTO) 0.1 K/uL (0.0-0.4); EOSINOPHILS % (AUTO) 1.6 % (0.0-4.0); HEMATOCRIT 24.2 % (36-48); HEMOGLOBIN 8.2 g/dL (12.0-16.0); LYMPHOCYTES # (AUTO) 2.1 K/uL (1.0-5.5); LYMPHOCYTES % (AUTO) 24.5 % (20.5-51.5); MEAN CORPUSCULAR HEMOGLOBIN 31 pg (27-31); MEAN CORPUSCULAR HGB CONC 34 % (32-36); MEAN CORPUSCULAR VOLUME 91 fL (79.0-98.0); MONOCYTES # (AUTO) 0.9 K/uL (0.0-1.0); MONOCYTES % (AUTO) 11.1 % (1.7-9.3); NEUTROPHILS # (AUTO) 5.3 K/uL (1.8-7.7); NEUTROPHILS % (AUTO) 62.6 % (40.0-70.0); PLATELET COUNT (AUTO) 182 K/uL (130-430); RED BLOOD CELL COUNT(AUTO) 2.66 MIL/uL (4.2-6.2); RED CELL DISTRIBUTION WIDTH 14.3 % (9.0-15.0); WHITE BLOOD COUNT (AUTO) 8.5 K/uL (4.8-10.8)
[2022-11-24 06:12] LABS: ANION GAP 10 (5-15); CALCIUM 7.9 mg/dL (8.4-11.0); CARBON DIOXIDE 24 mmol/L (23-29); CHLORIDE 105 mmol/L (98-107); CREATININE 0.89 mg/dL (0.55-1.30); GLUCOSE 112 mg/dL (74-106); POTASSIUM 4.5 mmol/L (3.5-5.1); SODIUM SERUM 139 mmol/L (136-145); UREA NITROGEN, BLOOD 15 mg/dL (8-21)
[2022-11-24] MEDS: CEFAZOLIN 2 GM IVPB PREMIX 50 ML IV SCH ×3 (06:15→21:21)
[2022-11-24 07:00] VITALS: BP_SYST 133; PULSE 98; RESP 16; TEMP 98.1; O2SAT 96; O2SAT 97
[2022-11-24 09:00] VITALS: BP_SYST 133; PULSE 98; RESP 16; TEMP 98.1; O2SAT 97
[2022-11-24] MEDS ORDERED: DOCUSATE SODIUM 100 MG CAPSULE PO PRN (09:45)
[2022-11-24] MEDS: amLODIPine BESYLATE 5 MG TABLET PO SCH (09:58)
[2022-11-24] MEDS: HYDROcodone/ACETAMIN 5-325 MG TAB (NORCO/ VICODIN) PO PRN ×2 (09:59→19:15)
[2022-11-24 12:00] VITALS: BP_SYST 126; PULSE 94; RESP 16; TEMP 97.3; O2SAT 96
[2022-11-24 16:00] VITALS: BP_SYST 107; PULSE 87; RESP 16; TEMP 97.4; O2SAT 96
[2022-11-24 20:12] VITALS: BP_SYST 123; PULSE 90; RESP 18; TEMP 97.7; O2SAT 95
[2022-11-24] MEDS: ZOLPIDEM TARTRATE 5 MG TABLET PO SCH (21:00)
[2022-11-25 00:08] VITALS: BP_SYST 109; PULSE 81; RESP 15; TEMP 98.7; O2SAT 93
[2022-11-25] MEDS: CEFAZOLIN 2 GM IVPB PREMIX 50 ML IV SCH (05:35)
[2022-11-25] MEDS: HYDROcodone/ACETAMIN 5-325 MG TAB (NORCO/ VICODIN) PO PRN (05:42)
[2022-11-25 06:25] LABS: BASOPHILS % (AUTO) 0.4 % (0.0-2.0); EOSINOPHILS # (AUTO) 0.3 K/uL (0.0-0.4); EOSINOPHILS % (AUTO) 3.7 % (0.0-4.0); HEMATOCRIT 26.8 % (36-48); HEMOGLOBIN 8.4 g/dL (12.0-16.0); LYMPHOCYTES # (AUTO) 1.6 K/uL (1.0-5.5); LYMPHOCYTES % (AUTO) 20.6 % (20.5-51.5); MEAN CORPUSCULAR HEMOGLOBIN 30 pg (27-31); MEAN CORPUSCULAR HGB CONC 31 % (32-36); MEAN CORPUSCULAR VOLUME 95 fL (79.0-98.0); MONOCYTES # (AUTO) 0.9 K/uL (0.0-1.0); MONOCYTES % (AUTO) 12.3 % (1.7-9.3); NEUTROPHILS # (AUTO) 4.8 K/uL (1.8-7.7); PLATELET COUNT (AUTO) 162 K/uL (130-430); RED BLOOD CELL COUNT(AUTO) 2.81 MIL/uL (4.2-6.2); RED CELL DISTRIBUTION WIDTH 15.3 % (9.0-15.0); WHITE BLOOD COUNT (AUTO) 7.6 K/uL (4.8-10.8)
[2022-11-25 07:30] VITALS: BP_SYST 110; PULSE 88; RESP 18; TEMP 98.3
[2022-11-25] MEDS: amLODIPine BESYLATE 5 MG TABLET PO SCH (09:46)
[2022-11-25] MEDS ORDERED: HYDR-3917 PO (10:05)
[2022-11-25 11:30] VITALS: BP_SYST 125; PULSE 92; RESP 18; TEMP 98.8; O2SAT 96
== END 2022-11-25 11:45 | disposition home health service (06) | DRG 481 ==
LOC: SED 11:06 → SMU 17:37
PROVIDERS: ADMIT Specialist; ATTEND Specialist
PROC: 0QP704Z Removal of Internal Fixation Device from Left Upper Femur, Open Approach (ICD-10-PCS; 2022-11-22)
PROC: 0QS904Z Reposition Left Femoral Shaft with Internal Fixation Device, Open Approach (ICD-10-PCS; principal; 2022-11-22 07:30)
DX: S72.392A Other fracture of shaft of left femur, initial encounter for closed fracture (principal); M97.02XA Periprosthetic fracture around internal prosthetic left hip joint, initial encounter; Z96.643 Presence of artificial hip joint, bilateral; Z96.652 Presence of left artificial knee joint; E78.5 Hyperlipidemia, unspecified; K21.9 Gastro-esophageal reflux disease without esophagitis; J44.9 Chronic obstructive pulmonary disease, unspecified; W18.39XA Other fall on same level, initial encounter; I10 Essential (primary) hypertension; E66.01 Morbid (severe) obesity due to excess calories; Z68.35 Body mass index [BMI] 35.0-35.9, adult; Z87.891 Personal history of nicotine dependence; Z90.710 Acquired absence of both cervix and uterus; Z91.81 History of falling; Z79.1 Long term (current) use of non-steroidal anti-inflammatories (NSAID); Z79.899 Other long term (current) drug therapy; Y93.89 Activity, other specified; Y92.89 Other specified places as the place of occurrence of the external cause; Y99.8 Other external cause status
CPT/HCPCS: 36415; 71045; 73552; 73700-TC; 76000; 76376; 80048; 80053; 81000; 83880; 84484; 85025; 85610-TC; 85651-TC; 85730-TC; 86886; 86900; 86901; 87081; 88300; 88305; 88311; 93005; 96374; 96375; 97110-GP; 97112-GP; 97116-GP; 97530-GP; 99285; J0131; J0690; J1100; J1170; J1885; J2270; J2405; J2704; J3010; J3370; J3465; J3490; J7120